=== PATIENT | male | born 1955 | race Caucasian/White ===

== ENCOUNTER → 2018-07-03 | Outpatient (CLI) | payer SELFPAY ==
[2017-09-19 14:13] VITALS: BMI 31.6
[2018-07-03 10:10] LABS: Anion Gap 4 (5-15); BUN 17 mg/dL (7-18); BUN/Creat Ratio 14.7 RATIO (10-20); Calcium,Total 8.4 mg/dL (8.5-10.1); Chloride 106 mmol/L (98-107); Cholesterol 146 mg/dL (200); Creatinine, Serum 1.16 mg/dL (0.70-1.30); EST Glomerular Filtration Rate 67 mL/min (>60); Est Glom Filt Rate - Afr Amer 82 mL/min (>60); Glucose 355 mg/dL (74-106); High Density Lipoprotein 32 mg/dL; Potassium 3.9 mmol/L (3.5-5.1); Sodium Level 137 mmol/L (136-145); Triglycerides 199 mg/dL; Very Low Density Lipoprotein 40 mg/dL (5-40)
== END | disposition home or self-care (01) ==
PROVIDERS: Family Provider Family Medicine; PCP Family Medicine; Referring Provider Family Medicine; Visit Provider Family Medicine
DX: I10 Essential (primary) hypertension (principal); I25.10 Atherosclerotic heart disease of native coronary artery without angina pectoris; E11.9 Type 2 diabetes mellitus without complications
CPT/HCPCS: 36415; 80048; 80061; 83036

== ENCOUNTER → 2019-06-01 10:24 | Outpatient (CLI) | payer MEDICARE, SELFPAY ==
[2017-09-19 14:13] VITALS: BMI 31.6
[2019-06-01 10:34] LABS: Bacteria 0 SEEN /hpf (None Seen); Mucous, Urine 0 SEEN /hpf (<or=2+); Red Blood Cells-Urine 0 SEEN /hpf (0-5); White Blood Cells 0 SEEN /hpf (0-5)
[2019-06-01 12:05] LABS: Color, Urine Yellow (Yellow); Glucose, Dipstick Normal (Normal); Ketone-Dipstick Negative (Negative); Leukocyte Esterase-Dipstick Negative /ul (Negative); Nitrite-Dipstick Negative (Negative); Occult Blood-Urine Negative /ul (Negative); Protein-Dipstick Negative (Negative); Urine Bilirubin Dipstick Negative (Negative); Urine Clarity Sl. Cloudy (Clear); Urine Urobilinogen Normal (Normal)
[2019-06-01 12:32] LABS: Squamous Epithelial Cells - UA 0-5 SEEN /hpf (0-5)
[2019-06-01 12:43] LABS: ALB/GLOB Ratio 0.9 RATIO (0.9-2.4); AST(SGOT) 16 U/L (15-37); Alanine Aminotransfer ALT/SGPT 27 U/L (16-61); Albumin, Serum 3.3 g/dL (3.2-5.0); Alkaline Phosphatase 85 U/L (45-117); Anion Gap 4 (5-15); BUN 20 mg/dL (7-18); BUN/Creat Ratio 18.2 RATIO (10-20); Calcium,Total 8.6 mg/dL (8.5-10.1); Chloride 111 mmol/L (98-107); Cholesterol 135 mg/dL (200); EST Glomerular Filtration Rate 71 mL/min (>60); Est Glom Filt Rate - Afr Amer 86 mL/min (>60); Globulin 3.6 g/dL (2.2-4.2); Glucose 152 mg/dL (74-106); High Density Lipoprotein 32 mg/dL; Potassium 4.5 mmol/L (3.5-5.1); Protein, Total 6.9 g/dL (6.4-8.2); Sodium Level 143 mmol/L (136-145); Thyroid Stim Hormone (TSH) 1.38 uIU/mL (0.358-3.74); Triglycerides 113 mg/dL; Very Low Density Lipoprotein 23 mg/dL (5-40)
[2019-06-01 12:49] LABS: Absolute Neutrophil Count 3.4 X10^3/uL (2.0-7.7); Basophil# 0.03 X10^3/uL; Basophil% 0.5 % (0-1); Eosinophil# 0.14 X10^3/uL; Eosinophils% 2.5 % (0-5); Hematocrit 45.6 % (40-54); Hemoglobin 14.7 g/dL (13.0-16.5); Lymphocyte % 26.7 % (19-41); Mean Corp Hgb Conc 32.2 g/dL (32-36); Mean Corpuscular Volume 86.9 fL (80-94); Mean Platelet Vol. 12.4 fl (6.2-12.0); Microalbumin,Random Urine 16.5 mg/L (NO RANGE EST.); Microalbumin:Creatinine Ratio 16.6 mg/g CRE (<30 mg/g CRE); Monocyte# 0.53 X10^3/uL; Monocyte% 9.4 % (0-10); NRBC Flagged by Analyzer 0 % (0-5); Neutrophil # 3.39 X10^3/uL (2.7-7.7); Neutrophil % 60.5 % (47-70); Platelet Count 181 K/mm3 (150-450); RBC Distribution Width CV 14.1 % (11.6-14.6); RBC Distribution Width SD 44.6 fl (35.1-43.9); Red Blood Count 5.25 M/mm3 (4.6-6.2); White Blood Count 5.6 K/mm3 (4.4-11.0)
== END ==
PROVIDERS: PCP Family Medicine; Referring Provider Family Medicine; Visit Provider Family Medicine
DX: E11.65 Type 2 diabetes mellitus with hyperglycemia (principal); I10 Essential (primary) hypertension; E78.5 Hyperlipidemia, unspecified
CPT/HCPCS: 36415; 80053; 80061; 81001; 82043; 82570; 83036; 84443; 85025

== ENCOUNTER 2020-05-12 10:00 | Outpatient (RCR) | payer MEDICARE, OTHER, SELFPAY ==
--- NOTE | 2020-02-17 14:31 | HP.PTEVAL ---
Patient's Visit Information GAVI PETERSON is a 64 year old M referred to Physical Therapy by PHIL PEREA with a diagnosis of Right Total Knee Replacement. Date of Evaluation: 02/17/20 Physical Therapist: Yusra Patel DPT - Visit Plan Frequency: 3x /Week Duration: 3 Weeks Plan: Right TKR 01/27/2020- Focus on ROM and functional mobility - Subjective Right Total Knee Replacemtn 01/26/2020 by an MD at [facility]. Went home after surgery and home therapy. Single story with 1 step getting in/out. Things are going well- the knee feels better in the Am and then it tightens up when he ambulates. But its getting better. No AD prior to surgery. Should have had the surgery a few years ago. Fully I prior to surgery. Is back to driving at this point. Describes the pain as dull and achy. Side sleeper- hard to sleep on his back- does not prop it up with pillows. Eases: ice packs Agg: walking and moving it. Worst: 10/10 when therapy pressed into extension. Sits on his bed with his leg level for most of the day. Does not plan to move his bed upstairs. Does have slight radiation pain to the lateral aspect of the thigh. Will get a jolt of pain through the knee. 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 No Heavy lifting. PMHX: HTN, DM, pancreas does not work well, 2 stents, CA 2.5 years go. Meds: see list - Objective Posture: Fh, RS can correct but does not maintain. Gait: severely antalgic- decreased stance on the right Le with poor heel/toe- turns his right toes out. Observation: in sitting patient kicks his right LE out in front of him to avoid bending and toes pillowcase turner. Incision: well healed no s/s of infection-no olaf. HR/TR: able with UE A. SLS: weight shift reports pain TU.26 seconds. Girth: Patella: 37 cm 6 above: 57cm. Palpatoin: tender along medial and lateral joint line. ROM: 25-70 degrees. Strength: Core: poor, Hip: 4-/5 throughout, Knee: Flexion: 17.4, Extn: 27.3, Ankle: 5/5 - Goals Goal 1:: Patient will be I with HEP and progression Goal Time Frame: 4-6 Weeks Goal 2:: Patient will demo 0-115 degrees of ROM Goal Time Frame: 4-6 Weeks Goal 3:: Patient will ambulate >300 feet with LRD and no deviation Goal Time Frame: 4-6 Weeks Goal 4:: Patient will asc/desc 8 stairs recip with 1 HR Goal Time Frame: 4-6 Weeks - Rehabilitation Potential Physical Therapy Diagnosis: Patient presents with hypomobility- he has decreased ROM,strength, flex and muscular endurance leading to abnormal gait and inability to perform ADL's. Rehabilitation Potential: Fair - Anticipated Interventions Patient/Client Instruction: Educate patient on: Benefits of Fitness Program Therapeutic Exercise to Include: Strength training, Endurance training, Balance training, Coordination, Agility training, Body mechanics, Postural training, Flexibilty training, Gait and locomotor training, Neuromotor development, Passive ROM, Active ROM, Dynamic Lumbar Stabilization, Scapular Strength/Stabilization For the Purpose of:: To improve muscle performance and motor function TENS: Yes Other electric stimulation: Yes Cryotherapy (ice pack, ice massage): Yes Thermo therapy (hot pack): Yes Ultrasound (thermal/non thermal): No Vasopneumatic device: Yes For the Purpose of:: To decrease pain Thank you for the opportunity to evaluate your patient. For Medicare and Medicare HMO plans, please review the plan of care and approve it. It will need to be FAXED BACK to us at [phone] for Medicare purposes. For Medicare only, by signing this I certify the plan of care. Please let me know if there are questions or concerns regarding this plan of care. Physician Signature: Date:
--- NOTE | 2020-03-09 11:25 | HP.PTREVAL_ITS ---
PHIL PEREA, It has been my pleasure to treat GAVI PETERSON over the last 10 visits for Right Total Knee Replacement. Please see the progress note below for an update on the physical therapy plan of care! Subjective: Pt presents with pain and is still demonstrating antaglic gait. Pt reports PT is really working his knee. Still taking pain pills to sleep and reports hard to get comfortable. Muscles in foot will ache- puts ointment on it to calm it down some. WOMAC score: 38.54 Objective/Function: Posture: Fh, RS can correct but does not maintain. Gait: continues to be antalgic- decreased stance on the right Le with poor heel/toe- turns his right toes out. Observation: in sitting patient kicks his right LE out in front of him to avoid bending and toes groover and turner. HR/TR: able with UE A. Stairs: required BUE support with ascending and descnding, poor eccentric control and decreased ROM limiting descent. SLS: 3 seconds before pain limits pt TU.31 seconds. Girth: Patella: 45.5 cm 6 above: 48.5cm. ROM: 24-80 degrees. Strength: Hip:flex 9.6, ext 9.4 Knee: Flexion: 31.9 Extn: 35.9. Pt continues to present with catches increasing pain with movement. Pt reported increase in pain at EOB with legs not touching floor. Plan Plan: Right TKR 01/27/2020- Focus on ROM and functional mobility. RTD Feb 03/09: Pt education back to MD to report progress, but continue to see therapy to continue to progress and increase ROM. Goals Goal 1:: Patient will be I with HEP and progression Goal Time Frame: 4-6 Weeks Goal Progress: Progressing Goal 2:: Patient will demo 0-115 degrees of ROM Goal Time Frame: 4-6 Weeks Goal Progress: Progressing Goal 3:: Patient will ambulate >300 feet with LRD and no deviation Goal Time Frame: 4-6 Weeks Goal Progress: Progressing Goal 4:: Patient will asc/desc 8 stairs recip with 1 HR Goal Time Frame: 4-6 Weeks Goal Progress: Progressing Anticipated Interventions Patient/Client Instruction: Educate patient on: Benefits of Fitness Program Therapeutic Exercise to Include: Strength training, Endurance training, Balance training, Coordination, Agility training, Body mechanics, Postural training, Flexibilty training, Gait and locomotor training, Neuromotor development, Passive ROM, Active ROM, Dynamic Lumbar Stabilization, Scapular Strength/Stabilization For the Purpose of:: To improve muscle performance and motor function TENS: Yes Other electric stimulation: Yes Cryotherapy (ice pack, ice massage): Yes Thermo therapy (hot pack): Yes Ultrasound (thermal/non thermal): No Vasopneumatic device: Yes For the Purpose of:: To decrease pain Please do not hesitate to contact me at [phone] by phone or if you have questions or concerns regarding this new plan of care! Sincerely, SOUMYA SheriffT
--- NOTE | 2020-03-18 10:13 | HP.PTREVAL ---
PHIL PEREA, It has been my pleasure to treat GAVI PETERSON over the last 13 visits for Right Total Knee Replacement. Please see the progress note below for an update on the physical therapy plan of care! Subjective: Had manipulation yesterday but did not get a lot of infomration on how much it moved. Also had cortisone injection. Objective/Function: Walking slightly antalgic and avoiding end range knee ext today better after session than prior. -7 degrees ext to start and -3 in prone hang. 89 degrees flexion to start and 100 after stretching. Steps performed with two rails today more comfortable than earlier in week. Overall looks improved, pain is still limiting factor with ROM end range but no pain at rest today. appropriate to continue toward appropriate old and new goals. Fair prognosis Plan Plan: daily for next week then 3x/week for 3 weeks to ensure ROM progerssion and back to function and strength/gait. Fair prognosis to maintain 100 degree ROM, questionable to improve on ext. Goals Goal 1:: Patient will be I with HEP and progression Goal Time Frame: 2-4 Weeks Goal Progress: approp Goal 2:: Patient will demo 0-115 degrees of ROM Goal Time Frame: 4-6 Weeks Goal Progress: unlikely to meet Goal 3:: Patient will ambulate >300 feet with LRD and no deviation Goal Time Frame: 4-6 Weeks Goal Progress: Progressing, approp. Goal 4:: Patient will asc/desc 8 stairs recip with 1 HR Goal Time Frame: 4-6 Weeks Goal Progress: Progressing,a pprop Goal 5:: Pt will get -2 to 102 degrees arom and maintain it Goal Time Frame: 2-4 Weeks Goal Progress: NEW GOAL Goal 6:: Steps with one rail without pain reciprocally. Goal Time Frame: 2-4 Weeks Goal Progress: NEW GOAL Anticipated Interventions Patient/Client Instruction: Educate patient on: Benefits of Fitness Program Therapeutic Exercise to Include: Strength training, Endurance training, Balance training, Coordination, Agility training, Body mechanics, Postural training, Flexibilty training, Gait and locomotor training, Neuromotor development, Passive ROM, Active ROM, Dynamic Lumbar Stabilization, Scapular Strength/Stabilization For the Purpose of:: To improve muscle performance and motor function TENS: Yes Other electric stimulation: Yes Cryotherapy (ice pack, ice massage): Yes Thermo therapy (hot pack): Yes Ultrasound (thermal/non thermal): No Vasopneumatic device: Yes For the Purpose of:: To decrease pain Please do not hesitate to contact me at [phone] by phone or if you have questions or concerns regarding this new plan of care! Sincerely, Shai Tran, DPT, OCS, CSCS
--- NOTE | 2020-04-14 10:20 | HP.PTREVAL ---
PHIL PEREA, It has been my pleasure to treat GAVI PETERSON over the last 27 visits for Right Total Knee Replacement. Please see the progress note below for an update on the physical therapy plan of care! Subjective: Patient reports that the knee is coming. The pain is only slight in the front of the knee- mostly just stiffness and has pain comes and goes. Patient feels that he is 80% Objective/Function: Posture: Fh, RS can correct but does not maintain. Gait: slightly antalgic- decreased heel/toe pattern on the right. HR/TR: able with UE A. Stairs: asc/desc 8 recip with 1 HR- good control with ascend and improving with descent TU.98 seconds. ROM: -8-108 degrees. Strength: Knee: Flexion: 36.2 Extn: 49.8. Sit to Stand: 14 in 30 seconds. WOMAC:12.5 Plan Plan: Continue 2x a week for 4 weeks- focus on strength and functional mobility. Goals Goal 1:: Patient will be I with HEP and progression Goal Time Frame: 2-4 Weeks Goal Progress: approp Goal 2:: Patient will demo 0-115 degrees of ROM Goal Time Frame: 4-6 Weeks Goal Progress: unlikely to meet Goal 3:: Patient will ambulate >300 feet with LRD and no deviation Goal Time Frame: 4-6 Weeks Goal Progress: Progressing, approp. Goal 4:: Patient will asc/desc 8 stairs recip with 1 HR Goal Time Frame: 4-6 Weeks Goal Progress: Progressing,a pprop Goal 5:: Pt will get -2 to 102 degrees arom and maintain it Goal Time Frame: 2-4 Weeks Goal Progress: NEW GOAL Goal 6:: Steps with one rail without pain reciprocally. Goal Time Frame: 2-4 Weeks Goal Progress: NEW GOAL Anticipated Interventions Patient/Client Instruction: Educate patient on: Benefits of Fitness Program Therapeutic Exercise to Include: Strength training, Endurance training, Balance training, Coordination, Agility training, Body mechanics, Postural training, Flexibilty training, Gait and locomotor training, Neuromotor development, Passive ROM, Active ROM, Dynamic Lumbar Stabilization, Scapular Strength/Stabilization For the Purpose of:: To improve muscle performance and motor function TENS: Yes Other electric stimulation: Yes Cryotherapy (ice pack, ice massage): Yes Thermo therapy (hot pack): Yes Ultrasound (thermal/non thermal): No Vasopneumatic device: Yes For the Purpose of:: To decrease pain Please do not hesitate to contact me at [phone] by phone or if you have questions or concerns regarding this new plan of care! Sincerely, SOUMYA SheriffT
--- NOTE | 2020-05-12 10:39 | HP.PTDCSUM ---
It has been my pleasure to treat GAVI PETERSON referred by PHIL PEREA, with the diagnosis of Right Total Knee Replacement for a total of 35 visit(s). Discharge Date: Please see the following information for a summary of their discharge status. Subjective: Patient reports that he is doing well- he is still using the knee extension machine. At this point his biggest complaint is the groin pain. He feels that he is 90% back normal and is ready for d/c. R knee Pain Intensity (Out of 10): 0 % Improvement: 100 Objective/Function: Posture: Fh, RS can correct but does not maintain. Gait: slightly antalgic- decreased heel/toe pattern on the right with his toes turned out. HR/TR: able with UE A. Stairs: asc/desc 8 recip with 1 HR TU.83 seconds. ROM: -5-110 degrees. Strength: Knee: Flexion: 41.0 Extn: 67.3 Sit to Stand: 20 in 30 seconds. WOMAC:4.16 Goal 1:: Patient will be I with HEP and progression Goal Progress: Goal Met Goal 2:: Patient will demo 0-115 degrees of ROM Goal Progress: Progressing Goal 3:: Patient will ambulate >300 feet with LRD and no deviation Goal Progress: Progressing Goal 4:: Patient will asc/desc 8 stairs recip with 1 HR Goal Progress: Goal Met Goal 5:: Pt will get -2 to 102 degrees arom and maintain it Goal Progress: Progressing Goal 6:: Steps with one rail without pain reciprocally. Goal Progress: Progressing Plan: Discharge to home exercise program-encouraged him to follow up with MD about groin. If there are questions or concerns regarding this patient's physical therapy, please feel free to call me at [phone]. Thank you for the referral of this patient. Sincerely, Yusra Patel DPT
== END 2020-05-12 10:51 | disposition home or self-care (01) ==
LOC: PT 10:00
PROVIDERS: PCP Family Medicine
DX: M17.11 Unilateral primary osteoarthritis, right knee (principal)
CPT/HCPCS: 97016; 97110; 97140; 97162; 97164

== ENCOUNTER → 2020-05-26 08:47 | Outpatient (CLI) | payer MEDICARE, OTHER, SELFPAY ==
[2017-09-19 14:13] VITALS: BMI 31.6
[2020-05-26 10:34] LABS: Hemoglobin A1c 7.6 % (3.8-5.6)
[2020-05-26 10:43] LABS: ALB/GLOB Ratio 0.9 RATIO (0.9-2.4); AST(SGOT) 13 U/L (15-37); Alanine Aminotransfer ALT/SGPT 23 U/L (16-61); Albumin, Serum 3.4 g/dL (3.2-5.0); Alkaline Phosphatase 100 U/L (45-117); Anion Gap 4 (5-15); BUN 23 mg/dL (7-18); BUN/Creat Ratio 19.2 RATIO (10-20); Calcium,Total 8.8 mg/dL (8.5-10.1); Chloride 108 mmol/L (98-107); Cholesterol 150 mg/dL (200); EST Glomerular Filtration Rate 64 mL/min (>60); Est Glom Filt Rate - Afr Amer 78 mL/min (>60); Globulin 3.6 g/dL (2.2-4.2); Glucose 209 mg/dL (74-106); High Density Lipoprotein 41 mg/dL; Potassium 4.3 mmol/L (3.5-5.1); Sodium Level 139 mmol/L (136-145); Thyroid Stim Hormone (TSH) 1.04 uIU/mL (0.358-3.74); Triglycerides 104 mg/dL; Very Low Density Lipoprotein 21 mg/dL (5-40)
[2020-05-26 10:45] LABS: Vitamin D,25 Hydroxy 27.4 ng/mL
[2020-05-26 13:15] LABS: Microalbumin,Random Urine 11.8 mg/L (NO RANGE EST.); Microalbumin:Creatinine Ratio 6.3 mg/g CRE (<30 mg/g CRE)
== END ==
PROVIDERS: PCP Family Medicine; Referring Provider Family Medicine; Visit Provider Family Medicine
DX: E11.65 Type 2 diabetes mellitus with hyperglycemia (principal); E55.9 Vitamin D deficiency, unspecified
CPT/HCPCS: 36415; 80053; 80061; 82043; 82306; 82570; 83036; 84443

== ENCOUNTER → 2021-01-02 10:01 | Outpatient (CLI) | payer MEDICARE, OTHER, SELFPAY ==
[2021-01-02 12:27] LABS: ALB/GLOB Ratio 0.8 RATIO (0.9-2.4); AST(SGOT) 11 U/L (15-37); Alanine Aminotransfer ALT/SGPT 17 U/L (16-61); Albumin, Serum 3.2 g/dL (3.2-5.0); Alkaline Phosphatase 98 U/L (45-117); Anion Gap 5 (5-15); BUN 16 mg/dL (7-18); BUN/Creat Ratio 15.1 RATIO (10-20); Chloride 107 mmol/L (98-107); Creatinine, Serum 1.06 mg/dL (0.70-1.30); EST Glomerular Filtration Rate 74 mL/min (>60); Est Glom Filt Rate - Afr Amer 90 mL/min (>60); Globulin 3.9 g/dL (2.2-4.2); Glucose 146 mg/dL (74-106); Potassium 4.1 mmol/L (3.5-5.1); Protein, Total 7.1 g/dL (6.4-8.2); Sodium Level 141 mmol/L (136-145)
== END ==
PROVIDERS: Family Medicine; Referring Provider Family Medicine; Visit Provider Family Medicine
DX: E11.65 Type 2 diabetes mellitus with hyperglycemia (principal); I10 Essential (primary) hypertension
CPT/HCPCS: 36415; 80053; 83036

== ENCOUNTER 2024-08-03 08:07 | Day surgery (SDC) | payer MEDICARE, SELFPAY ==
--- NOTE | 2024-07-22 10:51 | PAT.ANESEVAL ---
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 When Was Last Pacemaker Check QUESTION #4 FULL TEXT: You/Your Family Experience fever (hyperthermia) with Anesthesia Last Oral Intake Last Oral intake: Last Oral Intake NPO since Meds taken in AM with sips of water? Meds patient instructed to take am of surgery PONV PONV - faculty research assistant: PONV - faculty research assistant Female No 07/21/24 12:13 HX of Motion Sickness No 07/21/24 12:13 HX of N/V After Surgery No 07/21/24 12:13 Non-Smoker Yes 07/21/24 12:13 Duration of Surgery greater No 07/21/24 12:13 than 60 minutes Number of Risk Factors 1 07/21/24 12:13 PONV Score Low Risk 07/21/24 12:13 Respiratory Assessment Respiratory Assessment - faculty research assistant: Respiratory Tract Infection Hx - faculty research assistant Hx Respiratory Tract Infection No 07/21/24 12:13 STOP Sleep Apnea STOP Sleep Apnea - faculty research assistant: STOP Sleep Apnea - faculty research assistant Hx Hypertension Yes 07/21/24 12:13 Hx Sleep Apnea Yes 07/21/24 12:13 CPAP Yes 07/21/24 12:13 BIPAP No 07/21/24 12:13 Do you snore loudly (louder than talking or can be heard Do you often feel tired/ fatigued/ sleepy during daytime? Has anyone observed you stop breathing during sleep? STOP Results Positive 07/21/24 12:13 QUESTION #5 FULL TEXT : Do you snore loudly (louder than talking or can be heard through closed doors)? Tobacco Use History Tobacco Use History - faculty research assistant: Tobacco Use History - faculty research assistant Tobacco Use Smoking Status Never smoker 07/21/24 12:13 Hx Tobacco Use No 07/21/24 12:13 Years Smoking Packs Smoked per Day Smoking Cessation Date was within the last 15 years Hx Smoking Cessation Date Hx Smoking Cessation No 07/21/24 12:13 Counseling Hematologic Medial History Hematologic Hx - faculty research assistant: Hematologic Medical Hx - backup administrator Hx of Blood Transfusion No 07/21/24 12:13 Hx of Transfusion in last 3 No 07/21/24 12:13 Months Date of Last Transfusion (if within last 3 months) Ever experience any problems No 07/21/24 12:13 with transfusion(s)? Specify any problems Hx of Preganancy in last 3 N/A 07/21/24 12:13 Months Nurse Filling Out Trans[facility] 07/21/24 12:13 & Questions: Date: 07/21/24 07/21/24 12:13 Time: 12:15 07/21/24 12:13 Patient unable to answer at this time (ie. confused, unrespo /Reproduction History /Reproductive History - faculty research assistant: /Reproductive Hx- faculty research assistant Hx Now No 07/21/24 12:13 Gestational Age (in weeks): EDC: Hx Hx Para Hx [facility] Medical History (Updated 07/21/24 @ 12:22 by Ignacia Johnson) Wears glasses Cancer Insulin dependent diabetes mellitus Diabetes Prostate disease High cholesterol Arthritis Non-smoker CPAP (continuous positive airway pressure) dependence Sleep apnea History of echocardiogram Cardiology follow-up encounter Chronic systolic (congestive) heart failure Ischemic cardiomyopathy Type 2 diabetes mellitus without complications Atherosclerotic heart disease of [place] coronary artery with unstable angina pectoris SOB (shortness of breath) Home Medications ?Medication ?Instructions ?Recorded ?Last Taken ?Type metformin 500 mg tablet 1,000 mg PO SUSA 05/07/15 05/07/15 History carvedilol 25 mg tablet 25 mg PO BID 09/19/17 Unknown History clopidogrel 75 mg tablet (Plavix) 75 mg PO QDAY #30 tabs 09/19/17 Unknown Rx lisinopril 40 mg tablet 40 mg PO DAILY 09/19/17 Unknown History amlodipine 10 mg tablet 10 mg PO DAILY 07/21/24 Unknown History gabapentin 100 mg capsule 100 mg PO QHS 07/21/24 Unknown History insulin glargine 100 unit/mL 35 unit subcut BID 07/21/24 Unknown History subcutaneous solution (Lantus U-100 Insulin) isosorbide mononitrate 60 mg 60 mg PO DAILY 07/21/24 Unknown History tablet,extended release 24 hr rosuvastatin 40 mg tablet 40 mg PO DAILY 07/21/24 Unknown History tamsulosin 0.4 mg capsule 0.4 mg PO DAILY 07/21/24 Unknown History Allergy/AdvReac Type Severity Reaction Status Date / Time No Known Allergies Allergy Verified 09/19/17 14:14 Family History Father CVA (cerebral vascular accident) Surgical History (Updated 07/21/24 @ 12:36 by Ignacia Johnson) History of bilateral cataract extraction History of cardiac catheterization History of appendectomy Hx of appendectomy History of left heart catheterization Social History (Updated 09/19/17 @ 15:[address] Charli Mcgregor MD) Smoking Status: Never smoker alcohol intake: never caffeine: Yes Type: coffee Audit: Pertinent Findings HISTORY of Pertinent Findings History of Pertinent Findings: 68 year old male with PMH of CAD s/p PCI to distal RCA 2015, repeat RCA PCI 2017, cardiomyopathy with midrange EF; MOSHE noncompliant with CPAP Pertinent Findings EKG Perinent findings: 07/20/2024: SR with abnormal R wave progression, LV hypertrophy Stress test pertinent findings: 12/2021: Fixed inferior defect consistent with infarct, EF 42% Echo (EF%) pertinent findings: 07/20/2024: EF 55-60%, LV wall thickness moderately to severely increased. Aortic valve - mild regurgitation. Right atrium, mildly dilated Recommendation Anesthesia Recommendation Anesthesia recommendation: OPTIMIZED for anesthesia
[2024-08-03] VITALS (9 sets, daily range): BP systolic 117–136; BP diastolic 62–72; PULSE 53–66; RESP 16–20; TEMP 36.2–37.2; O2SAT 91–95; BMI 37.4
[2024-08-03] MEDS: Lactated Ringers 1,000 ML 15 ML IV (08:53)
--- NOTE | 2024-08-03 09:08 | PRE.ANES_ITS ---
ASA Classification* ASA Classification ASA Classification: 3 Assessment & Plan Anesthesia* Anesthesia Assessment Anesthesia Assessment: Discussed sedation and/or anesthesia options, risks, benefits, and alternatives with patient/parents/legal guardian/POA. Questions invited. The patient/parents/legal guardian/POA seems to understand and agrees to proceed with anesthesia plan. Reviewed the physical assessment, medical history, allergy history and patient home medications list prior to surgery/procedure/anesthetic and documented any changes. Performed airway and anesthesia risk assessments. Anesthesia Type Anesthesia Type: General History Source History Obtained from:: Patient and Chart Anesthesia Focused Assessment* Temperature: 97.8 F Pulse Rate: 66 Blood Pressure: 136/69 Respiratory Rate: 16 Pulse Ox: 95 Oxygen Delivery Method: Room Air Airway Assessment Mouth opens: >3 cm Mallampati Score: III Teeth Condition: Caps/Crowns (Patient has a crown. It is tight.) Neck Range of motion (ROM): Limited ROM (Decreased extension secondary to arthritis.) Labs Anesthesia Preop lab: CBC WBC 5.6 K/mm3 (4.4-11.0) 06/01/19 10:32 06/01/19 RBC 5.25 M/mm3 (4.6-6.2) 06/01/19 10:32 06/01/19 Hgb 14.7 g/dL (13.0-16.5) 06/01/19 10:32 06/01/19 Hct 45.6 % (40-54) 06/01/19 10:32 06/01/19 Plt Count 181 K/mm3 (150-450) 06/01/19 10:32 06/01/19 CHEMISTRY Potassium 4.1 mmol/L (3.5-5.1) 01/02/21 10:03 01/02/21 Sodium 141 mmol/L (136-145) 01/02/21 10:03 01/02/21 Magnesium 2.3 mg/dL (1.8-2.4) 05/08/15 07:45 05/08/15 BUN 16 mg/dL (7-18) 01/02/21 10:03 01/02/21 Creatinine 1.06 mg/dL (0.70-1.30) 01/02/21 10:03 01/02/21 Glucose 146 mg/dL (74-106) H 01/02/21 10:03 01/02/21 POC Glucose 147 mg/dL (70-110) H 05/10/15 06:34 05/10/15 TSH 1.04 uIU/mL (0.358-3.74) 05/26/20 08:52 COAG PT 14.3 SECONDS (11.7-14.9) 05/10/15 05:00 Pre-Assessment Diagnosis/Proposed Procedure Planned Operative Procedure(s): EXCISION OF OROPHARYNGEAL MASS Anesthesia History 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 When Was Last Pacemaker Check QUESTION #4 FULL TEXT: You/Your Family Experience fever (hyperthermia) with Anesthesia Last Oral Intake Last Oral intake: Last Oral Intake NPO since 20:00 08/03/24 08:32 Meds taken in AM with sips of Yes 08/03/24 08:32 water? 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 Female No 07/21/24 12:13 HX of Motion Sickness No 07/21/24 12:13 HX of N/V After Surgery No 07/21/24 12:13 Non-Smoker Yes 07/21/24 12:13 Duration of Surgery greater No 07/21/24 12:13 than 60 minutes Number of Risk Factors 1 07/21/24 12:13 PONV Score Low Risk 07/21/24 12:13 Height & Weight Height & Weight: Anesthesia: Height & Weight Height 5 ft 9 in 08/03/24 08:32 Weight: 115 kg 08/03/24 08:32 Body Mass Index (BMI) 37.4 08/03/24 08:32 Respiratory Assessment Respiratory Assessment - associate professor of economics: Respiratory Tract Infection Hx - associate professor of economics Hx Respiratory Tract Infection No 07/21/24 12:13 STOP Sleep Apnea STOP Sleep Apnea - associate professor of economics: STOP Sleep Apnea - associate professor of economics Hx Hypertension Yes 07/21/24 12:13 Hx Sleep Apnea Yes 07/21/24 12:13 CPAP Yes 07/21/24 12:13 BIPAP No 07/21/24 12:13 Do you snore loudly (louder than talking or can be heard Do you often feel tired/ fatigued/ sleepy during daytime? Has anyone observed you stop breathing during sleep? STOP Results Positive 07/21/24 12:13 QUESTION #5 FULL TEXT : Do you snore loudly (louder than talking or can be heard through closed doors)? 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 Specify any problems Hx of Preganancy in last 3 N/A 07/21/24 12:13 Months Nurse Filling Out Transfusion [facility] 07/21/24 12:13 & Questions: Date: 07/21/24 07/21/24 12:13 Time: 12:15 07/21/24 12:13 Patient unable to answer at this time (ie. 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: /Reproductive Hx- associate professor of economics Hx Now No 07/21/24 12:13 Gestational Age (in weeks): EDC: Hx Hx Para Hx Section SAB Active Medications Active Medications: Current Medications Generic Name Dose Route Start Last Admin Trade Name Freq PRN Reason Stop Dose Admin Lactated Ringer's 1,000 mls @ 15 mls/hr 08/03/24 08:30 08/03/24 08:53 IV 15 mls/hr .Q48H JOEL Administration PFSH Medical History Wears glasses Cancer Insulin dependent diabetes mellitus Diabetes Prostate disease High cholesterol Arthritis Non-smoker CPAP (continuous positive airway pressure) dependence Sleep apnea History of echocardiogram Cardiology follow-up encounter Chronic systolic (congestive) heart failure Ischemic cardiomyopathy Type 2 diabetes mellitus without complications Atherosclerotic heart disease of [place] coronary artery with unstable angina pectoris SOB (shortness of breath) Home Medications ?Medication ?Instructions ?Recorded ?Last Taken ?Type metformin 500 mg tablet 1,000 mg PO SUSA 05/07/15 History carvedilol 25 mg tablet 25 mg PO BID 09/19/17 07:15 History clopidogrel 75 mg tablet (Plavix) 75 mg PO QDAY #30 ta bs 09/19/17 07/27/24 Rx lisinopril 40 mg tablet 40 mg PO DAILY 09/19/17 Unkn own History amlodipine 10 mg tablet 10 mg PO DAILY 07/21/2407/19 07:15 History gabapentin 100 mg capsule 100 mg PO QHS 07/21/2408/02 History insulin glargine 100 unit/mL 35 unit subcut BID Unknown History subcutaneous solution (Lantus U-100 Insulin) isosorbide mononitrate 60 mg 60 mg PO DAILY 07/21/24 0 08/03/24 07:15 History tablet,extended release 24 hr rosuvastatin 40 mg tablet 40 mg PO DAILY 07/21/24 Unkn own History tamsulosin 0.4 mg capsule 0.4 mg PO DAILY 07/21/24 Unk nown History Allergy/AdvReac Type Severity Reaction Status Date / Time No Known Allergies Allergy Verified 09/19/17 14:14 Family History Father CVA (cerebral vascular accident) Surgical History History of bilateral cataract extraction History of cardiac catheterization History of appendectomy Hx of appendectomy History of left heart catheterization Social History Smoking Status: Never smoker alcohol intake: never caffeine: Yes Type: coffee Review of Systems (Anesthesia) ROS Narrative System reviewed and no additional complaints, except as documented.
[2024-08-03 09:18] LABS: Bedside Glucose 281 mg/dL (74-106)
--- NOTE | 2024-08-03 09:20 | MASS_PTH ---
PATIENT: GAVI PETERSON (JERRY) LOC: [facility] U#:[id number] AGE/SX: 69/M ROOM: RE08/03/[address]: Dr. Juan J Mcgill MD : 1955 BED: DIS: 08/03/2024 SPEC #: [id number] RECD: 08/03/24 10:41 STATUS: MONICA REJeana #: [id number] KLEBER: 08/03/24 09:[address]: Juan J Mcgill DEPT: SURGICAL PATHOLOGY RECD BY: Flynn Breaux ENTERED: 08/03/24 11:33 SP TYPE: Mass OTHR DR: Monica Mcneil, TOW PICKER-C Tissues: A - Oropharynx, NOS Procedures: Surgery Specimen Level IV HEADER OPERATION: Excision oropharyngeal mass PRE-OP DIAGNOSIS: TISSUE SUBMITTED: A- Oropharyngeal mass - right MICROSCOPIC DIAGNOSIS A. Oropharyngeal mass, right, excision: Benign squamous papilloma. MICROSCOPIC DESCRIPTION Slides are reviewed. GROSS DESCRIPTION A. Received in formalin labeled with the patient's name and date of . Designated as oropharyngeal mass-right is a 0.8 x 0.7 x 0.1 cm wagner-white, focally erythematous and granular soft tissue fragment devoid of orientation.? The presumed resection margin is inked black, the specimen is serially sectioned and entirely submitted in 1 cassette. AL 08/03/2024 CPT:55722
--- NOTE | 2024-08-03 09:24 | PCM.DC.SUM ---
Providers Primary Care Physician: DEBBIE AlvarezC Reason For Visit: Excision oropharyngeal mass Medications at Discharge Home Medications metformin 500 mg tablet 1,000 mg PO SUSA 05/07/15 carvedilol 25 mg tablet 25 mg PO BID 09/19/17 clopidogrel 75 mg tablet (Plavix) 75 mg PO QDAY #30 tabs 09/19/17 lisinopril 40 mg tablet 40 mg PO DAILY 09/19/17 amlodipine 10 mg tablet 10 mg PO DAILY 07/21/24 gabapentin 100 mg capsule 100 mg PO QHS 07/21/24 insulin glargine 100 unit/mL subcutaneous solution (Lantus U-100 Insulin) 35 unit subcut BID 07/21/24 isosorbide mononitrate 60 mg tablet,extended release 24 hr 60 mg PO DAILY 07/21/24 rosuvastatin 40 mg tablet 40 mg PO DAILY 07/21/24 tamsulosin 0.4 mg capsule 0.4 mg PO DAILY 07/21/24 Weight / BMI Weight Weight: 115 kg Body Mass Index (BMI) 37.4 ABG / Lab / Microbiology Data Laboratory: Laboratory Results - last 24 hr 08/03/24 08:37: POC Glucose 281 H D/C Instructions Discharge Diet: Soft diet Discharge Activity: Return to Normal Activity DC O2, CPAP, BIPAP Needs Home O2 Discharge instructions: No Please Follow Up With: Juan J Mcgill MD When: 2 weeks Meaningful Use Info Meaningful Use Meaningful Use Diagnoses (Choose all that apply): None applicable Ischemic Stroke Statin Dosing Therapy Reference: STATIN DOSE THERAPY REFERENCE: * Patients > 75 years receive moderate or high dose statin therapy. * Patients 75 years or YOUNGER should receive HIGH intensity statin dose unless contraindicated. You will be required to document reason for non-treatment if statin daily dose does not meet guidelines. HIGH DOSE STATIN THERAPY DAILY Atorvastatin > than or = to 40 mg Rosuvastatin > than or = to 20 mg Amlodipine + Atorvastatin > than or = to 2.5/40 mg Ezetimibe + Simvastatin 10/80 mg Simvastatin 80mg Discharge Plan Admission Attending Provider: Juan J Mcgill Primary Care Provider: Monica Mcneil NP Instructions Print Language: Portuguese Discharge Orders/Prescriptions Prescriptions: No Action carvedilol 25 mg tablet 25 mg PO BID lisinopril 40 mg tablet 40 mg PO DAILY clopidogrel [Plavix] 75 mg tablet 75 mg PO QDAY Qty: 30 3RF Patient Comments: WILL STOP 7 DAYS PRIOR TO SURGERY metformin 500 MG tablet 1,000 mg PO SUSA Patient Comments: diabetes isosorbide mononitrate 60 mg tablet extended release 24 hr 60 mg PO DAILY amlodipine 10 mg tablet 10 mg PO DAILY gabapentin 100 mg capsule 100 mg PO QHS insulin glargine [Lantus U-100 Insulin] 100 unit/mL solution 35 unit subcut BID Patient Comments: PT ADJUSTS DOSAGE BASED ON GLUCOSE, USUALLY 75 TOTAL UNITS A DAY. tamsulosin 0.4 mg capsule 0.4 mg PO DAILY rosuvastatin 40 mg tablet 40 mg PO DAILY Referrals / Follow Up: Monica Mcneil CELEBRITY CHEF ENTREPRENEUR MEDIA PERSONALITY, CELEBRITY CHEF ENTREPRENEUR MEDIA PERSONALITY-C [Primary Care Provider] - Disposition Disposition (needs filled in before D/C Order can be placed): Home, Self Care
--- NOTE | 2024-08-03 09:25 | PCM.OPRPT ---
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 He was placed in the supine position on the operating room table. He was given sufficient general endotracheal anesthesia. The table was turned 90 degrees in a clockwise fashion. The Eliceo mouthgag was inserted into the patient's mouth and the patient was suspended on a Gallegos stand. 1% lidocaine with epinephrine was injected into the mucosa surrounding the neoplasm on the right anterior tonsillar pillar. After sufficient vasoconstriction, the lesion was excised with a 15 blade and scissors. Hemostasis was achieved with suction cautery. I then closed the incision with interrupted 4-0 chromic. I irrigated the oropharynx and all irrigant was suctioned away with the agar suction. The gag was closed. It was reopened to inspect for bleeding. There was none and the gag was removed. The patient was then awoken and brought to recovery room in stable condition. blood loss minimal, replacement none. sponge, needle and instrument count were correct at the end of the procedure. Surgical Findings: papilloma Complications Complications: No
[2024-08-03] MEDS: Lidocaine 1% /Epi 1:100 (20ml) 20 ML Vial (09:44)
--- NOTE | 2024-08-03 10:14 | PCM.POST.ANE ---
Anesthesia: Postop Eval I Current Vital Signs Temperature: 97.2 F Pulse Rate: 58 Blood Pressure: 125/72 Respiratory Rate: 20 Pulse Ox: 93 Assessment Airway patent: Yes Spontaneous unlabored respirations: Yes nausea: No Vomiting: No Anesthesia Complication: No Fluid Hydration Crystalloid volume administer (ml): 200 Total IV fluid infused: 200 Progress Note Anesthesia document: Postop Eval 1 completed: Yes
--- NOTE | 2024-08-03 10:46 | POSTOPAN2_ITS ---
Anesthesia Postop Eval I Sum Postop Eval Completion status Anesthesia document: Postop Eval 1 completed: Yes Anesthesia Postop Eval I Summary Anesthesia Postop Eval I Summary: Anesthesia Postop Eval I: Assessment Summary Airway patent Yes 08/03/24 10:45 ASSISTANT TEACHING PROFESSOR.CSIR Spontaneous unlabored Yes 08/03/24 10:45 ASSISTANT TEACHING PROFESSOR.CSIR respirations Mental status nausea No 08/03/24 10:45 ASSISTANT TEACHING PROFESSOR.CSIR Vomiting No 08/03/24 10:45 ASSISTANT TEACHING PROFESSOR.CSIR Anesthesia Postop Eval I: Fluid Summary Crystalloid volume administer 200 08/03/24 10:45 ASSISTANT TEACHING PROFESSOR.CSIR (ml) Colloids volume administered ( ml) Blood Product volume administered (ml) Total IV fluid infused 200 08/03/24 10:45 ASSISTANT TEACHING PROFESSOR.CSIR Anesthesia Postop Eval I: Summary Notes Anesthesia Complication No 08/03/24 10:45 ASSISTANT TEACHING PROFESSOR.CSIR Anesthesia Complication Comment: Post-operative progress note Anesthesia: Postop Eval II Evaluation Mental status: Awake Pain Level: 0 nausea: No Vomiting: No
--- NOTE | 2024-08-03 10:46 | PCM.POSTANE2 ---
Anesthesia Postop Eval I Sum Postop Eval Completion status Anesthesia document: Postop Eval 1 completed: Yes Anesthesia Postop Eval I Summary Anesthesia Postop Eval I Summary: Anesthesia Postop Eval I: Assessment Summary Airway patent Yes 08/03/24 10:45 SCRUM PROJECT MANAGER.CSIR Spontaneous unlabored Yes 08/03/24 10:45 SCRUM PROJECT MANAGER.CSIR respirations Mental status nausea No 08/03/24 10:45 SCRUM PROJECT MANAGER.CSIR Vomiting No 08/03/24 10:45 SCRUM PROJECT MANAGER.CSIR Anesthesia Postop Eval I: Fluid Summary Crystalloid volume administer 200 08/03/24 10:45 SCRUM PROJECT MANAGER.CSIR (ml) Colloids volume administered ( ml) Blood Product volume administered (ml) Total IV fluid infused 200 08/03/24 10:45 SCRUM PROJECT MANAGER.CSIR Anesthesia Postop Eval I: Summary Notes Anesthesia Complication No 08/03/24 10:45 SCRUM PROJECT MANAGER.CSIR Anesthesia Complication Comment: Post-operative progress note Anesthesia: Postop Eval II Evaluation Mental status: Awake Pain Level: 0 nausea: No Vomiting: No
[2024-08-03] MEDS: Acetaminophen 325 MG Tablet 650 MG PO (11:17)
== END 2024-08-03 11:50 | disposition home or self-care (01) ==
LOC: SDC 08:09 → AC 08:11
PROVIDERS: PCP Registered Nurse; Referring Provider Otolaryngology; Visit Provider Otolaryngology
PROC: (CPT 42808; principal; 2024-08-03 09:10)
DX: D10.5 Benign neoplasm of other parts of oropharynx (principal); E11.9 Type 2 diabetes mellitus without complications; I10 Essential (primary) hypertension; I25.10 Atherosclerotic heart disease of native coronary artery without angina pectoris; Z79.84 Long term (current) use of oral hypoglycemic drugs; Z79.899 Other long term (current) drug therapy
CPT/HCPCS: 42808; 00170; 82962; 88304; 88305; J2405

== ENCOUNTER 2024-10-27 07:30 | Outpatient (RCR) | payer MEDICARE, SELFPAY ==
--- NOTE | 2024-10-15 11:58 | HP.PTEVAL ---
Patient's Visit Information Visit Information Visit Information: GAVI PETERSON (JERRY) is a 69 year old M referred to Physical Therapy by Dr. Nic Webster DO with a diagnosis of SPECIFIED ENTHESOPATHIES OF RIGHT LOWER LEG. Date of Evaluation: 10/15/24 Physical Therapist: Cornelius Nevarez, PT, Cert MDT, OCS Visit Plan Frequency: 2x /Week Duration: 4 Weeks Plan: PT INTERVENTIONS ROM /FLEXABILITY HIP ,STRENGTHENING EX'S RIGHT HIP FLEXORS/GLUT MEDIUS ,ADN FUNCTIONAL STRENGTHENING Subjective Subjective: This 69 y/o male presents to physical therapy right hip pain flexor. Patient hip groin pain ~ 4 years.Seen Saurabh . Did x-rays Minimal degenerative changes of the hip joints are seen, without associated joint narrowing.No evidence of femoral head osteonecrosis. Aggravating factors walking/standing ,stairs ,squatting . Alleviating factors rest. Denies paresthesia/tingling. Sleeping good. Coughing/sneezing-. Bowel/bladder-. Patient condition affects QOL /function. Patient goals to decrease pain. 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 Pain Right Hip: Pain Intensity (Out of 10): 5 Comment: groin Objective Objective: POSTURE: mild forward posture hips/knees slightly flexed PALAPTION: unremarkable NEURO: denies paresthesia/tingling GAIT: ambulates with antalgic gait right side decrease stance time slow yovana FLEXABILITY: hamstrings mod tight ,piriformis mod tight PROM HIP: IR 20 degrees ,hip flexion 70 degrees ,abduction 40 degrees ,knee flexion 80 degrees MMT: right quads /hams 4/5 ( peak force ) hip flexion 0 ,abduction 12.1.ankle 4/5 Special Tests R Hip Scour: Positive R Hip RADHA - Intraarticular Pathology: Positive R Hip Trendelenberg - Glut Medius: Positive Balance/Special Test Scores Lower Extremity Functional Score: 32 Goals Goal 1:: Patient to be I with HEP for hip Goal Time Frame: 4-6 Weeks Goal 2:: Patient to improve hip ROM by 5-10 degrees to improve QOL and function Goal Time Frame: 4-6 Weeks Goal 3:: Patient to improve peak force hip by 5-10# to improve gait and function Goal Time Frame: 4-6 Weeks Goal 4:: Patient to improve LFES score by 5 points to improve function and QOL Goal Time Frame: 4-6 Weeks Goal 5:: Patient to demonstrate 50% improvement with less pain and improved function with gait. Goal Time Frame: 4-6 Weeks Rehabilitation Potential Physical Therapy Diagnosis: This patient has right hip pain with weakness right hip ,decrease gait ,decrease ROM thus benefit from skilled PT Rehabilitation Potential: Good Anticipated Interventions Patient/Client Instruction: Educate patient on: Condition and Plan of Care For the Purpose of:: To decrease pain, To increase ROM, To increase tolerance to activity/condition/position, To improve ability of physical actions for home/community/work/leisure, To improve health of tissue, To decrease soft tissue restriction, To increase flexibility/ROM and To improve tolerance to ADL's Therapeutic Exercise to Include: Strength training, Flexibilty training, Passive ROM and Active ROM Comment: HIP For the Purpose of:: To decrease pain, To increase ROM, To improve muscle performance and motor function, To improve ability to perform ADL's, To increase tolerance to activity/condition/position, To improve ability of physical actions for home/community/work/leisure, To decrease soft tissue restriction, To increase flexibility/ROM and To improve tolerance to ADL's TENS: Yes IF ES: Yes Cryotherapy (ice pack, ice massage): Yes Thermo therapy (hot pack): Yes Ultrasound (thermal/non thermal): Yes For the Purpose of:: To decrease pain, To increase ROM, To improve nutrient delivery to tissue and To increase oxygenation perfusion Text: Thank you for the opportunity to evaluate your patient. For Medicare and Medicare HMO plans, please review the plan of care and approve it. It will need to be FAXED BACK to us at [phone] for Medicare purposes. For Medicare only, by signing this I certify the plan of care. Please let me know if there are questions or concerns regarding this plan of care. Physician Signature: Date:
--- NOTE | 2024-10-27 08:17 | HP.PTDCSUM ---
Discharge Summary D/C summary: It has been my pleasure to treat GAVI PETERSON (JERRY) referred by Dr. Nic Webster DO, with the diagnosis of SPECIFIED ENTHESOPATHIES OF RIGHT LOWER LEG for a total of 2 visit(s). Discharge Date: Please see the following information for a summary of their discharge status. Subjective Subjective: Knee is painful LEFT needs TKA Wants to do ex's on own Pain Right Hip: Pain Intensity (Out of 10): 5 Overall Improvement % Improvement: 30 Objective Objective/Function: POSTURE: mild forward posture hips/knees slightly flexed PALAPTION: unremarkable NEURO: denies paresthesia/tingling GAIT: ambulates with antalgic gait right side decrease stance time slow yovana FLEXABILITY: hamstrings mod tight ,piriformis mod tight PROM HIP: IR 20 degrees ,hip flexion 70 degrees ,abduction 40 degrees ,knee flexion 80 degrees MMT: right quads /hams 4/5 ( peak force ) hip flexion 10.2 ,abduction 13.1.ankle 4/5 Goals Goal 1:: Patient to be I with HEP for hip Goal Progress: Goal Met Goal 2:: Patient to improve hip ROM by 5-10 degrees to improve QOL and function Goal Progress: Progressing Goal 3:: Patient to improve peak force hip by 5-10# to improve gait and function Goal Progress: Progressing Goal 4:: Patient to improve LFES score by 5 points to improve function and QOL Goal Progress: Progressing Goal 5:: Patient to demonstrate 50% improvement with less pain and improved function with gait. Goal Progress: Progressing Plan Plan: D/C TO HEP D/C Information d/c sentence: If there are questions or concerns regarding this patient's physical therapy, please feel free to call me at [phone]. Thank you for the referral of this patient. Sincerely, Cornelius Nevarez, PT, Cert MDT, OCS Balance/Gait/Functional tests Balance/Special Test Scores Lower Extremity Functional Score: 43 Improvement % Improvement: 30
== END 2024-10-27 19:00 | disposition home or self-care (01) ==
LOC: PT 07:30
PROVIDERS: PCP Registered Nurse; Referring Provider Orthopaedic Surgery; Visit Provider Orthopaedic Surgery
DX: M76.891 Other specified enthesopathies of right lower limb, excluding foot (principal)
CPT/HCPCS: 97110; 97162